=== PATIENT | female | born 1950 | race Caucasian/White ===

== ENCOUNTER 2018-08-17 09:39 | Day surgery (SDC) | payer MEDICARE, BC, SELFPAY ==
--- NOTE | 2018-08-14 15:31 | W.PIPPEYE ---
History of Present Illness Chief Complaint: Progressive decreased vision, left eye Narrative: The patient is a 68-year-old lady who presented with complaints of diminished visual acuity in both eyes at both distance and near. She has significant difficulty driving at night. On examination she was noted to have bilateral nuclear cortical and posterior subcapsular cataract with visual acuity of 20/40 in each eye with significant glare disability. The option of cataract surgery was offered to the patient and she felt she was symptomatic enough that she wished to proceed. NOTE: The Chief Complaint, HPI, Past Medical History, Past Surgical History, Family History, Social History, Medications, and complete Ophthalmic Exam with detailed Assessment and Plan have already been documented in the patient's outpatient ophthalmic record and are not covered again in detail here. [facility] Family History Mother Diabetes Heart disease Stroke Father Kidney disease Neoplasm Surgical History Anterior Spinal Stabilization/Fracture Repair-Cervical Region 1990 Cholecystectomy (10/11/17) Tonsillectomy and adenoidectomy Meds Home Medications Medication Instructions Recorded Confirmed Type amlodipine 1 tab PO DAILY 04/30/17 08/12/18 History enalapril maleate 1 tab PO DAILY 04/30/17 08/12/18 History ciprofloxacin-dexamethasone 7.5 ml OTIC PRN PRN 02/03/18 08/12/18 History [Ciprodex Otic Suspension] naproxen sodium [Aleve] 220 mg PO PRN tab 02/03/18 08/12/18 History metoprolol succinate ER 50 mg 50 mg PO DAILY 08/04/18 08/12/18 History tablet,extended release 24 hr Allergies Allergy/AdvReac Type Severity Reaction Status Date / Time Latex, Natural Rubber Allergy Intermediate Skin Rash Verified 08/13/18 13:37 codeine AdvReac Unknown Nausea Verified 08/13/18 13:37 Exam OCULAR EXAM:: Visual acuity at distance: Corrected visual acuity 20/40 OD, 20/40 OS Pupils: Pupils equal, round, and reactive without afferent pupillary defect IOP: 20 OD 20 OS Extraocular Motility: Normal Pertinent Slit Lamp Findings: Significant for pupils dilating to 7 mm OU. 2-3+ nuclear with 1+ cortical and posterior subcapsular cataract OU Dilated Funduscopic Examination: Disc cupping is 0.5 OD 0.4 OS with good color. The optic nerves have good perfusion and normal color. The retinal vasculature is normal without significant tortuosity or abnormality. The maculas are normal in appearance with normal contour and foveal reflex appropriate for age. The peripheral retina and vitreous are normal. BRIGHTNESS ACUITY TESTING (BAT):: Off left eye 20/40 Low: 20/60 Medium: 20/60 High: 20/80 Assessment and Plan (1) Posterior subcapsular age-related cataract of left eye: Current visit: No Status: Acute Assessment: Visually significant cataract, left eye. Plan: Cataract extraction with intraocular lens implantation, left eye (2) Cortical cataract of left eye: Current visit: No Status: Acute Assessment: Visually significant cataract, left eye. Plan: Cataract extraction with intraocular lens implantation, left eye (3) Nuclear sclerotic cataract of left eye: Current visit: No Status: Acute Assessment: Visually significant cataract, left eye. Plan: Cataract extraction with intraocular lens implantation, left eye Note: NOTE:: The details of the planned surgery, including the risks, indications,limitations,expectations,outcome and possible complications were explained to the patient. The patient understands the complications including, but not limited to: infection, hemorrhage, posterior dislocation of the lens or nuclear fragments which may require the intervention of a vitreoretinal surgeon, possible loss of the eye, or from anesthetic complications. The patient has been made aware of the option of not having surgery, that vision following surgery may not be equal to that prior to surgery, and that the planned surgery may not achieve the intended results. Following this discussion, which the patient appeared to understand, the patient wishes to proceed with cataract surgery with lens implantation of the affected eye to improve and maximize vision.
--- NOTE | 2018-08-14 18:13 | POEE_ITS ---
History of Present Illness Chief Complaint: Progressive decreased vision, left eye Narrative: The patient is a 68-year-old lady who presented with complaints of diminished visual acuity in both eyes at both distance and near. She has significant difficulty driving at night. On examination she was noted to have bilateral nuclear cortical and posterior subcapsular cataract with visual acuity of 20/40 in each eye with significant glare disability. The option of cataract surgery was offered to the patient and she felt she was symptomatic enough that she wished to proceed. NOTE: The Chief Complaint, HPI, Past Medical History, Past Surgical History, Family History, Social History, Medications, and complete Ophthalmic Exam with detailed Assessment and Plan have already been documented in the patient's outpatient ophthalmic record and are not covered again in detail here. [facility] Family History Mother Diabetes Heart disease Stroke Father Kidney disease Neoplasm Surgical History Anterior Spinal Stabilization/Fracture Repair-Cervical Region 1990 Cholecystectomy (10/11/17) Tonsillectomy and adenoidectomy Meds Home Medications Medication Instructions Recorded Confirmed Type amlodipine 1 tab PO DAILY 04/30/17 08/12/18 History enalapril maleate 1 tab PO DAILY 04/30/17 08/12/18 History ciprofloxacin-dexamethasone 7.5 ml OTIC PRN PRN 02/03/18 08/12/18 History [Ciprodex Otic Suspension] naproxen sodium [Aleve] 220 mg PO PRN tab 02/03/18 08/12/18 History metoprolol succinate ER 50 mg 50 mg PO DAILY 08/04/18 08/12/18 History tablet,extended release 24 hr Allergies Allergy/AdvReac Type Severity Reaction Status Date / Time Latex, Natural Rubber Allergy Intermediate Skin Rash Verified 08/13/18 13:37 codeine AdvReac Unknown Nausea Verified 08/13/18 13:37 Exam OCULAR EXAM:: Visual acuity at distance: Corrected visual acuity 20/40 OD, 20/ 40 OS Pupils: Pupils equal, round, and reactive without afferent pupillary defect IOP: 20 OD 20 OS Extraocular Motility: Normal Pertinent Slit Lamp Findings: Significant for pupils dilating to 7 mm OU. 2-3+ nuclear with 1+ cortical and posterior subcapsular cataract OU Dilated Funduscopic Examination: Disc cupping is 0.5 OD 0.4 OS with good color. The optic nerves have good perfusion and normal color. The retinal vasculature is normal without significant tortuosity or abnormality. The maculas are normal in appearance with normal contour and foveal reflex appropriate for age. The peripheral retina and vitreous are normal. BRIGHTNESS ACUITY TESTING (BAT):: Off left eye 20/40 Low: 20/60 Medium: 20/60 High: 20/80 Assessment and Plan (1) Posterior subcapsular age-related cataract of left eye: Current visit: No Status: Acute Assessment: Visually significant cataract, left eye. Plan: Cataract extraction with intraocular lens implantation, left eye (2) Cortical cataract of left eye: Current visit: No Status: Acute Assessment: Visually significant cataract, left eye. Plan: Cataract extraction with intraocular lens implantation, left eye (3) Nuclear sclerotic cataract of left eye: Current visit: No Status: Acute Assessment: Visually significant cataract, left eye. Plan: Cataract extraction with intraocular lens implantation, left eye Note: NOTE:: The details of the planned surgery, including the risks, indications, limitations,expectations,outcome and possible complications were explained to the patient. The patient understands the complications including, but not limited to: infection, hemorrhage, posterior dislocation of the lens or nuclear fragments which may require the intervention of a vitreoretinal surgeon, possible loss of the eye, or from anesthetic complications. The patient has been made aware of the option of not having surgery, that vision following surgery may not be equal to that prior to surgery, and that the planned surgery may not achieve the intended results. Following this discussion, which the patient appeared to understand, the patient wishes to proceed with cataract surgery with lens implantation of the affected eye to improve and maximize vision.
[2018-08-17 10:15] VITALS: BP 152/87; PULSE 60; RESP 16; TEMP 36.4; O2SAT 97
[2018-08-17] MEDS: Lidocaine 2% Jelly 6 ML SYR (10:58)
[2018-08-17] MEDS: Povidone-Iodine Ophth 30 ML BTL (10:58)
[2018-08-17] MEDS: Balanced Salt Soln.-PLUS 500 ML BAG (10:58)
[2018-08-17] MEDS: Lidocaine 1% Pres-Free 5 ML VIAL (10:58)
--- NOTE | 2018-08-17 11:34 | W.PM.DSUDISC ---
Discharge Plan Discharge Details Attending Provider: Joaquin Ortiz Primary Care Provider: Juancarlos Infante Home Meds and New Rx's Prescriptions: No Action metoprolol succinate 50 mg tablet extended release 24 hr 50 mg PO DAILY RF: 0 naproxen sodium [Aleve] 220 MG tablet 220 mg PO PRN RF: 0 ciprofloxacin-dexamethasone [Ciprodex] 7.5 ML drops,suspension 7.5 ml Otic PRN PRNRF: 0 enalapril maleate 20 MG tablet 1 tab PO DAILY RF: 0 amlodipine 5 MG tablet 1 tab PO DAILY RF: 0 Discharge Instructions Stand Alone Forms: Post-op Topical Cataract, Carmelo Neumann (DSU) DS: Diagnosis Discharge Diagnosis (1) Posterior subcapsular age-related cataract of left eye: Status: Resolved (2) Cortical cataract of left eye: Status: Resolved (3) Nuclear sclerotic cataract of left eye: Status: Resolved
--- NOTE | 2018-08-17 11:35 | W.PM.OP ---
Date of service: 08/17/18 Time of Service: 11:35 Operative Note DATE OF PROCEDURE: 08/17/18 PRE-OP DIAGNOSIS: Cataract, left eye POST-OP DIAGNOSIS: same PROCEDURE: Cataract extraction using phacoemulsification with intraocular lens implant, left eye SURGEON: Joaquin Ortiz ANESTHESIA: MAC and local (sub-tenon's anesthetic infiltration) PATHOLOGY: none sent COMPLICATIONS: None Patient was transported to: same day Patient's condition: stable Implants: Rodrigo [employer] Rodrig[employer] / [employer] Tecnis [id number] Indications: Progressive decreased vision due to cataract, left eye Procedure Description: CATARACT SURGERY OPERATIVE REPORT PREOPERATIVE DIAGNOSIS: Nuclear/cortical/posterior subcapsular cataract, left eye POSTOPERATIVE DIAGNOSIS: Same OPERATION: Cataract extraction using phacoemulsification with posterior chamber intraocular lens implant, left eye. IOL: IOL Doll Wig Maker/Model: Rodrig[employer] Rodrig[employer] / GABO Tecnis [id number] IOL Power: +24.50 diopters IOL Serial Number: [id number] Optic Diameter: 6.0mm Haptic/Overall Diameter: 13.0mm PHACO INFO: [employer] One's On Me (NOOM)on Vision System with OZil and Active Fluidics Cumulative Dispersed Energy (CDE): 12.54 seconds SURGEON: Joaquin Ortiz MD, SUSAN ANESTHESIA: Monitored Anesthesia Care (MAC), with local sub-tenon's anesthetic infiltration WITHOUT sedation COMPLICATIONS: None SPECIMENS: None INDICATIONS FOR PROCEDURE: The patient is a 68-year old lady with history of progressive decreased vision in both eyes at both distance and near. She was noted to have a significant nuclear cortical and posterior subcapsular cataract in both eyes. The option of cataract surgery was offered to the patient and she wished to proceed. PROCEDURE: The correct surgical eye was identified and marked as the left eye and the pupil was dilated in the preoperative area using mydriatics, cycloplegics, and NSAIDS (except in aspirin allergic patients). The dilated pupil size was 7.0mm. No sedation was given. The patient was brought to the operating room where cardiopulmonary monitoring was instituted and surgical time-out was performed, confirming the correct operative eye and IOL power. Topical anesthesia was administered and ophthalmic povidone-iodine 5% was instilled into the conjunctival fornices. Lidocaine gel was applied to the cornea and the boston-ocular area was prepped with Betadine 10% solution and draped in the usual sterile fashion for intraocular surgery. Steri-strips were used to cover the lashes and lid margins and an adhesive eye drape was placed. Care was taken to isolate the lashes and lid margins under the Steri-strips and adhesive eye drape. A lid speculum was placed between the lids of the operative eye and the Vimal-Alfonso operating microscope was maneuvered into position. Florecita scissors were then used to make a conjunctival buttonhole approximately 6mm posterior to the limbus in the inferonasal quadrant. Blunt dissection was carried out to expose bare sclera, and a blunt-tipped sub-tenon?s anesthesia cannula was introduced and passed posteriorly along the globe where non-preserved plain lidocaine was injected into posterior sub-Tenon?s space. A sideport knife was used to make a paracentesis port at the 12:00 postion and the anterior chamber was filled with Healon GV. A 2.4mm keratome knife was used to create a half-thickness groove at the limbus and then to construct a three-plane near-clear corneal tunnel extending 2.0mm into clear cornea at the 3:00 position. A flap was raised on the anterior capsule and capsulorhexis forceps were used to complete a continuous curvilinear capsulorhexis of 5.0mm. Balanced salt solution was then used to perform cortical cleaving hydrodissection and nuclear hydrodelineation until the lens could be freely rotated within the capsular bag. The lens nucleus was then disassembled and removed within the capsular bag and iris plane using phacoemulsification. Residual cortical material was removed using the 45-degree angled silicone I/A tip with 0.3mm port. The posterior capsule was carefully polished to remove as much residual lens epithelial cells as safely possible. The capsular bag was then inflated and the anterior chamber deepened with viscoelastic. The lens implant described above was inserted into the capsular bag using the GABO [place] [employer] [place] Injector. A Kuglen hook was used to dial the IOL into position. Residual viscoelastic was then removed first from posterior to the IOL, then from the anterior chamber using the I/A handpiece. The lens implant was noted to center nicely within the capsular bag. The incisions were stromally hydrated, and the anterior chamber was reformed using BSS. Then 0.4cc of moxifloxacin 1.5mg/ml were injected into the capsular bag and anterior chamber. The incisions were checked with a Weck spear and found to be secure. Several drops of ophthalmic povidone-iodine 5% were then applied to the eye followed by two drops of Imprimis combination moxifloxacin/dexamethasone solution. The drapes were removed and a clear plastic protective eye shield was placed over the eye. The patient was then returned to Same Day Surgery in stable condition.
--- NOTE | 2018-08-17 11:40 | ROE_ITS ---
Date of service: 08/17/18 Time of Service: 11:35 Operative Note DATE OF PROCEDURE: 08/17/18 PRE-OP DIAGNOSIS: Cataract, left eye POST-OP DIAGNOSIS: same PROCEDURE: Cataract extraction using phacoemulsification with intraocular lens implant, left eye SURGEON: Joaquin Ortiz ANESTHESIA: MAC and local (sub-tenon's anesthetic infiltration) PATHOLOGY: none sent COMPLICATIONS: None Patient was transported to: same day Patient's condition: stable Implants: Rodrigo and Rodrigo / [employer] Tecnis [id number] Indications: Progressive decreased vision due to cataract, left eye Procedure Description: CATARACT SURGERY OPERATIVE REPORT PREOPERATIVE DIAGNOSIS: Nuclear/cortical/posterior subcapsular cataract, left eye POSTOPERATIVE DIAGNOSIS: Same OPERATION: Cataract extraction using phacoemulsification with posterior chamber intraocular lens implant, left eye. IOL: IOL Telecommunications Network Planner/Model: Rodrig[employer] Rodrigo / GABO Tecnis [id number] IOL Power: +24.50 diopters IOL Serial Number: [id number] Optic Diameter: 6.0mm Haptic/Overall Diameter: 13.0mm PHACO INFO: [employer] Vision System with OZil and Active Fluidics Cumulative Dispersed Energy (CDE): 12.54 seconds SURGEON: Joaquin Ortiz MD, SUSAN ANESTHESIA: Monitored Anesthesia Care (MAC), with local sub-tenon's anesthetic infiltration WITHOUT sedation COMPLICATIONS: None SPECIMENS: None INDICATIONS FOR PROCEDURE: The patient is a 68-year old lady with history of progressive decreased vision in both eyes at both distance and near. She was noted to have a significant nuclear cortical and posterior subcapsular cataract in both eyes. The option of cataract surgery was offered to the patient and she wished to proceed. PROCEDURE: The correct surgical eye was identified and marked as the left eye and the pupil was dilated in the preoperative area using mydriatics, cycloplegics, and NSAIDS (except in aspirin allergic patients). The dilated pupil size was 7.0mm. No sedation was given. The patient was brought to the operating room where cardiopulmonary monitoring was instituted and surgical time -out was performed, confirming the correct operative eye and IOL power. Topical anesthesia was administered and ophthalmic povidone-iodine 5% was instilled into the conjunctival fornices. Lidocaine gel was applied to the cornea and the boston-ocular area was prepped with Betadine 10% solution and draped in the usual sterile fashion for intraocular surgery. Steri-strips were used to cover the lashes and lid margins and an adhesive eye drape was placed. Care was taken to isolate the lashes and lid margins under the Steri-strips and adhesive eye drape. A lid speculum was placed between the lids of the operative eye and the Vimal-Alfonso operating microscope was maneuvered into position. Florecita scissors were then used to make a conjunctival buttonhole approximately 6mm posterior to the limbus in the inferonasal quadrant. Blunt dissection was carried out to expose bare sclera, and a blunt-tipped sub-tenon? s anesthesia cannula was introduced and passed posteriorly along the globe where non-preserved plain lidocaine was injected into posterior sub-Tenon?s space. A sideport knife was used to make a paracentesis port at the 12:00 postion and the anterior chamber was filled with Healon GV. A 2.4mm keratome knife was used to create a half-thickness groove at the limbus and then to construct a three-plane near-clear corneal tunnel extending 2.0mm into clear cornea at the 3:00 position. A flap was raised on the anterior capsule and capsulorhexis forceps were used to complete a continuous curvilinear capsulorhexis of 5.0mm. Balanced salt solution was then used to perform cortical cleaving hydrodissection and nuclear hydrodelineation until the lens could be freely rotated within the capsular bag. The lens nucleus was then disassembled and removed within the capsular bag and iris plane using phacoemulsification. Residual cortical material was removed using the 45-degree angled silicone I/A tip with 0.3mm port. The posterior capsule was carefully polished to remove as much residual lens epithelial cells as safely possible. The capsular bag was then inflated and the anterior chamber deepened with viscoelastic. The lens implant described above was inserted into the capsular bag using the GABO [place] Injector. A Kuglen hook was used to dial the IOL into position. Residual viscoelastic was then removed first from posterior to the IOL, then from the anterior chamber using the I/A handpiece. The lens implant was noted to center nicely within the capsular bag. The incisions were stromally hydrated , and the anterior chamber was reformed using BSS. Then 0.4cc of moxifloxacin 1.5mg/ml were injected into the capsular bag and anterior chamber. The incisions were checked with a Weck spear and found to be secure. Several drops of ophthalmic povidone-iodine 5% were then applied to the eye followed by two drops of Imprimis combination moxifloxacin/dexamethasone solution. The drapes were removed and a clear plastic protective eye shield was placed over the eye. The patient was then returned to Same Day Surgery in stable condition.
== END 2018-08-17 11:45 | disposition home or self-care (01) ==
LOC: SUR 09:40
PROVIDERS: PCP Family Medicine; Visit Provider Ophthalmology
PROC: (CPT 66984; principal; 2018-08-17 12:05)
DX: H25.812 Combined forms of age-related cataract, left eye (principal); I10 Essential (primary) hypertension
CPT/HCPCS: 66984; V2632

== ENCOUNTER 2018-08-31 06:39 | Day surgery (SDC) | payer MEDICARE, BC, SELFPAY ==
--- NOTE | 2018-08-29 19:33 | POEE_ITS ---
History of Present Illness Chief Complaint: Progressive decreased vision, right eye Narrative: The patient is a 68-year-old lady with history of diminished visual acuity in both eyes distance and near. On examination she was noted to have significant bilateral nuclear cortical and posterior cataract. She underwent cataract surgery in the left eye on 08/17/2018. Postoperatively she has regained uncorrected visual acuity of 20/25 in the left eye. She now presents for cataract surgery in the right eye. NOTE: The Chief Complaint, HPI, Past Medical History, Past Surgical History, Family History, Social History, Medications, and complete Ophthalmic Exam with detailed Assessment and Plan have already been documented in the patient's outpatient ophthalmic record and are not covered again in detail here. [facility] Family History Mother Diabetes Heart disease Stroke Father Kidney disease Neoplasm Medical History Cortical cataract of right eye (Acute) Nuclear sclerotic cataract of right eye (Acute) Posterior subcapsular age-related cataract, right eye (Acute) Nuclear sclerotic cataract of left eye (Resolved 08/17/18) Cortical cataract of left eye (Resolved 08/17/18) Posterior subcapsular age-related cataract of left eye (Resolved 08/17/18) Social History Smoking/Tobacco Use Status: Former Tobacco Use Surgical History Anterior Spinal Stabilization/Fracture Repair-Cervical Region 1990 Cholecystectomy (10/11/17) Tonsillectomy and adenoidectomy Meds Home Medications Medication Instructions Recorded Confirmed Type amlodipine 1 tab PO DAILY 04/30/17 08/17/18 History enalapril maleate 1 tab PO DAILY 04/30/17 08/17/18 History ciprofloxacin-dexamethasone 7.5 ml OTIC PRN PRN 02/03/18 08/12/18 History [Ciprodex Otic Suspension] naproxen sodium [Aleve] 220 mg PO PRN tab 02/03/18 08/17/18 History metoprolol succinate ER 50 mg 50 mg PO DAILY 08/04/18 08/17/18 History tablet,extended release 24 hr Allergies Allergy/AdvReac Type Severity Reaction Status Date / Time Latex, Natural Rubber Allergy Intermediate Skin Rash Verified 08/17/18 10:10 codeine AdvReac Unknown Nausea Verified 08/17/18 10:10 Exam OCULAR EXAM:: Visual acuity at distance: Corrected to 20/40 right eye, 20/25 left eye Pupils: Pupils equal, round, and reactive without afferent pupillary defect IOP: 20 OD 14 OS Extraocular Motility: Normal Pertinent Slit Lamp Findings: Significant for pupils dilating to 7 mm OU. 2-3+ nuclear with 1+ cortical and 1+ posterior cataract OD. Well-positioned PCIOL OS to clear posterior capsule. Dilated Funduscopic Examination: Significant for disc cupping of 0.55 OD, 0.4 OS with good color. The optic nerves have good perfusion and normal color. The retinal vasculature is normal without significant tortuosity or abnormality. The maculas are normal in appearance with normal contour and foveal reflex appropriate for age. The peripheral retina and vitreous are normal. BRIGHTNESS ACUITY TESTING (BAT):: Off right eye 20/40 Low: 20/60 Medium: 20/60 High: 20/80 Assessment and Plan (1) Posterior subcapsular age-related cataract, right eye: Current visit: No Status: Acute Assessment: Visually significant cataract, right eye. Plan: Cataract extraction with intraocular lens implantation, right eye (2) Nuclear sclerotic cataract of right eye: Current visit: No Status: Acute Assessment: Visually significant cataract, right eye. Plan: Cataract extraction with intraocular lens implantation, right eye (3) Cortical cataract of right eye: Current visit: No Status: Acute Assessment: Visually significant cataract, right eye. Plan: Cataract extraction with intraocular lens implantation, right eye Note: NOTE:: The details of the planned surgery, including the risks, indications, limitations,expectations,outcome and possible complications were explained to the patient. The patient understands the complications including, but not limited to: infection, hemorrhage, posterior dislocation of the lens or nuclear fragments which may require the intervention of a vitreoretinal surgeon, possible loss of the eye, or from anesthetic complications. The patient has been made aware of the option of not having surgery, that vision following surgery may not be equal to that prior to surgery, and that the planned surgery may not achieve the intended results. Following this discussion, which the patient appeared to understand, the patient wishes to proceed with cataract surgery with lens implantation of the affected eye to improve and maximize vision.
[2018-08-31 06:52] VITALS: BP 152/75; PULSE 58; RESP 16; TEMP 36.1; O2SAT 97
[2018-08-31] MEDS: Lidocaine 2% Jelly 6 ML SYR (08:16)
[2018-08-31] MEDS: Povidone-Iodine Ophth 30 ML BTL ×2 (08:17→08:41)
[2018-08-31] MEDS: Balanced Salt Soln.-PLUS 500 ML BAG (08:18)
--- NOTE | 2018-08-31 08:47 | W.PM.DSUDISC ---
Discharge Plan Discharge Details Attending Provider: Joaquin Ortiz Primary Care Provider: Juancarlos Infante Home Meds and New Rx's Prescriptions: No Action metoprolol succinate 50 mg tablet extended release 24 hr 50 mg PO DAILY RF: 0 naproxen sodium [Aleve] 220 MG tablet 220 mg PO PRN RF: 0 ciprofloxacin-dexamethasone [Ciprodex] 7.5 ML drops,suspension 7.5 ml Otic PRN PRNRF: 0 enalapril maleate 20 MG tablet 1 tab PO DAILY RF: 0 amlodipine 5 MG tablet 1 tab PO DAILY RF: 0 Discharge Instructions Stand Alone Forms: Post-op Topical Cataract, Carmelo Neumann (DSU) DS: Diagnosis Discharge Diagnosis (1) Posterior subcapsular age-related cataract, right eye: Status: Resolved (2) Nuclear sclerotic cataract of right eye: Status: Resolved (3) Cortical cataract of right eye: Status: Resolved
--- NOTE | 2018-08-31 08:50 | ROE_ITS ---
Date of service: 08/31/18 Time of Service: 08:48 Operative Note PRE-OP DIAGNOSIS: Cataract, right eye POST-OP DIAGNOSIS: same SURGEON: Joaquin Ortiz ANESTHESIA: MAC and local (sub-tenon's anesthetic infiltration) PATHOLOGY: none sent COMPLICATIONS: None Patient was transported to: same day Patient's condition: stable Implants: [employer] / [employer]nis [id number] Indications: Progressive decreased vision due to cataract, right eye Procedure Description: CATARACT SURGERY OPERATIVE REPORT PREOPERATIVE DIAGNOSIS: Nuclear/cortical/posterior subcapsular cataract, right eye POSTOPERATIVE DIAGNOSIS: Same OPERATION: Cataract extraction using phacoemulsification with posterior chamber intraocular lens implant, right eye. IOL: IOL Supervisor Production Department/Model: [employer]/GABO [id number] IOL Power: +24.5 diopers IOL Serial Number: [id number] Optic Diameter: 6.0mm Haptic/Overall Diameter: 13.0mm PHACO INFO: W[employer] FitOrbiturion Vision System with OZil and Active Fluidics Cumulative Dispersed Energy (CDE): 11.67seconds SURGEON: Joaquin Ortiz MD, SUSAN ANESTHESIA: Monitored Anesthesia Care (MAC), with local sub-tenon's anesthetic infiltration COMPLICATIONS: None SPECIMENS: None INDICATIONS FOR PROCEDURE: The patient is a 68-year-old lady with history of symptomatic bilateral nuclear cortical and posterior subcapsular cataracts. She is Ardie undergone cataract surgery in her right eye and is doing well postoperatively. She now presents for cataract surgery in the left eye. PROCEDURE: The correct surgical eye was identified and marked as the right eye and the pupil was dilated in the preoperative area using mydriatics, cycloplegics, and NSAIDS (except in aspirin allergic patients). No sedation was given at the patient's request. The patient was brought to the operating room where cardiopulmonary monitoring was instituted and surgical time-out was performed, confirming the correct operative eye and IOL power. Topical anesthesia was administered and ophthalmic povidone-iodine 5% was instilled into the conjunctival fornices. Lidocaine gel was applied to the cornea and the boston-ocular area was prepped with Betadine 10% solution and draped in the usual sterile fashion for intraocular surgery. Steri-strips were used to cover the lashes and lid margins and an adhesive eye drape was placed. Care was taken to isolate the lashes and lid margins under the Steri-strips and adhesive eye drape. A lid speculum was placed between the lids of the operative eye and the Vimal-Alfonso operating microscope was maneuvered into position. Florecita scissors were then used to make a conjunctival buttonhole approximately 6mm posterior to the limbus in the inferonasal quadrant. Blunt dissection was carried out to expose bare sclera, and a blunt-tipped sub-tenon? s anesthesia cannula was introduced and passed posteriorly along the globe where non-preserved plain lidocaine was injected into posterior sub-Tenon?s space. A sideport knife was used to make a paracentesis port at the 7:00 postion and the anterior chamber was filled with Healon GV. A 2.4mm keratome knife was used to create a half-thickness groove at the limbus and then to construct a three-plane near-clear corneal tunnel extending 2.0mm into clear cornea at the 10:00 position. A flap was raised on the anterior capsule and capsulorhexis forceps were used to complete a continuous curvilinear capsulorhexis of 5.0mm. Balanced salt solution was then used to perform cortical cleaving hydrodissection and nuclear hydrodelineation until the lens could be freely rotated within the capsular bag. The lens nucleus was then disassembled and removed within the capsular bag and iris plane using phacoemulsification. Residual cortical material was removed using the 45-degree angled silicone I/A tip with 0.3mm port. The posterior capsule was carefully polished to remove as much residual lens epithelial cells as safely possible. The capsular bag was then inflated and the anterior chamber deepened with viscoelastic. The lens implant described above was inserted into the capsular bag using the GABO [place] Injector. A Kuglen hook was used to dial the IOL into position. Residual viscoelastic was then removed first from posterior to the IOL, then from the anterior chamber using the I/A handpiece. The lens implant was noted to center nicely within the capsular bag. The incisions were stromally hydrated , and the anterior chamber was reformed using BSS. Then 0.4cc of moxifloxacin 1.5mg/ml were injected into the capsular bag and anterior chamber. The incisions were checked with a Weck spear and found to be secure. Several drops of ophthalmic povidone-iodine 5% were then applied to the eye followed by two drops of Imprimis combination moxifloxacin/dexamethasone solution. The drapes were removed and a clear plastic protective eye shield was placed over the eye. The patient was then returned to [facility] in stable condition.
[2018-08-31 09:00] VITALS: BP 157/80; PULSE 59; RESP 16; TEMP 36.2; O2SAT 96
== END 2018-08-31 09:03 | disposition home or self-care (01) ==
LOC: SUR 06:39
PROVIDERS: PCP Family Medicine; Visit Provider Ophthalmology
PROC: (CPT 66984; principal; 2018-08-31 08:30)
DX: H25.811 Combined forms of age-related cataract, right eye (principal); Z98.42 Cataract extraction status, left eye; Z96.1 Presence of intraocular lens; I10 Essential (primary) hypertension
CPT/HCPCS: 66984; V2632

== ENCOUNTER → 2018-09-17 08:39 | Outpatient (BNVA) | payer MEDICARE, BC, SELFPAY | PROVIDERS: PCP Family Medicine; Visit Provider Orthopaedic Surgery | DX: M17.11 Unilateral primary osteoarthritis, right knee (principal); M17.12 Unilateral primary osteoarthritis, left knee | CPT/HCPCS: 20610; 99211; 99213; J3304; J3490; J7318 ==

== ENCOUNTER → 2019-03-16 08:36 | Outpatient (BNVA) | payer MEDICARE, BC, SELFPAY | PROVIDERS: PCP Family Medicine; Referring Provider Family Medicine; Visit Provider Orthopaedic Surgery | DX: M17.11 Unilateral primary osteoarthritis, right knee (principal); M17.12 Unilateral primary osteoarthritis, left knee | CPT/HCPCS: 20610; 99211; 99212; J7318 ==

== ENCOUNTER → 2019-09-14 08:32 | Outpatient (BNVA) | payer MEDICARE, BC, SELFPAY | PROVIDERS: PCP Family Medicine; Referring Provider Family Medicine; Visit Provider Student in an Organized Health Care Education/Training Program | DX: M17.11 Unilateral primary osteoarthritis, right knee (principal); M17.12 Unilateral primary osteoarthritis, left knee; M25.561 Pain in right knee; M25.562 Pain in left knee | CPT/HCPCS: 20610; 99214; J1040 ==

== ENCOUNTER → 2019-12-16 11:19 | Outpatient (BNVA) | payer MEDICARE, BC, SELFPAY | PROVIDERS: PCP Family Medicine; Referring Provider Family Medicine; Visit Provider Student in an Organized Health Care Education/Training Program | DX: M17.11 Unilateral primary osteoarthritis, right knee (principal); M17.12 Unilateral primary osteoarthritis, left knee | CPT/HCPCS: 20610; 99213; J7318 ==

== ENCOUNTER 2020-05-15 10:43 | Outpatient (REF) | payer MEDICARE, BC, SELFPAY ==
[2020-05-15 19:15] LABS: Anion Gap 8.2 mmol/L (3-11); BUN 26 mg/dL (7-18); CO2 26.8 mmol/L (21.0-32.0); CREATININE 1.35 mg/dL (0.55-1.02); Calcium 9.5 mg/dL (8.5-10.1); Chloride 106 mmol/L (98-107); Estimated GFR 38.66 (mL/min/1.73m2); Glucose 117 mg/dL (74-106); Potassium 4.7 mmol/L (3.5-5.1); Sodium 141 mmol/L (136-145)
== END 2020-05-15 11:03 ==
LOC: LBO 10:43
PROVIDERS: PCP Family Medicine; Visit Provider Family Medicine
DX: N18.9 Chronic kidney disease, unspecified (principal)
CPT/HCPCS: 80048

== ENCOUNTER → 2020-06-12 09:49 | Outpatient (BNVA) | payer MEDICARE, BC, SELFPAY | PROVIDERS: PCP Family Medicine; Referring Provider Family Medicine; Visit Provider Student in an Organized Health Care Education/Training Program | DX: M17.12 Unilateral primary osteoarthritis, left knee (principal); M17.11 Unilateral primary osteoarthritis, right knee | CPT/HCPCS: 20610; 99213; J7318 ==

== ENCOUNTER 2020-11-20 01:34 | Outpatient (CLI) | payer MEDICARE, BC, SELFPAY ==
[2020-11-20 13:15] LABS: CREATININE 1.57 mg/dL (0.55-1.02); Creatine Kinase 133 U/L (26-192); Estimated GFR 32.48 (mL/min/1.73m2)
--- NOTE | 2020-11-20 13:30 | DI.CT_ITS ---
EXAM: CT HEAD WO/W CLINICAL HISTORY: OTORRHEA RT EAR, HEAD TRAUMA, CSF LEAK, H92.11, S09.90XA, G96.00. TECHNIQUE: Imaging Protocol: Both noninfused and contrast infused CT scans of the brain were perform ed. IV Contrast Dose =75 cc Axial computed tomography images with coronal and sagittal reformatted images were created and review ed COMPARISON: CT HEAD AND CSPINE W/O CONTRAST from 04/30/2017 FINDINGS: There are no skull fractures nor fluid in the visualized paranasal sinuses. There is opacification of right-sided mastoid air cells which are also hypoplastic and there is fluid at the level of the ad itus ad antrum noted. There is also some fluid in the medial aspect of the middle ear cavity. Ipsil ateral middle ear ossicles appear intact. There is no evidence of intracranial hemorrhage, mass effect, or shift of midline structures. There are no extra-axial fluid collections. The ventricles are not enlarged or shifted and there is no blo od within the ventricular system nor within the basal cisterns. There are no ring enhancing lesions in the brain and there is no abnormal meningeal enhancement, foca l or diffuse. No evidence of obvious aneurysm nor vascular malformation. IMPRESSION: No significant intracranial findings. No significant enhancing intracranial findings. No aneurysm is evident Incidentally noted is hypoplastic mastoid air cells on the right side and some fluid in the medial as pect of the right middle ear cavity, not associated with obvious fascicular destruction. RADIATION DOSE DELIVERED: 1,824.68mGy.cm Total DLP DATA REPOSITORY: All CT scans at this facility are submitted to the National Radiology Data Registry (NRDR) Dose Index Registry (DIR) with the [employer] (ACR). RADIATION OPTIMIZATION: All CT scans at this facility use at least one of these dose optimization te chniques: automated exposure control; mA and/or kV adjustment per patient size (includes targeted exa ms where dose is matched to clinical indication); or iterative reconstruction.
== END 2020-11-20 01:54 ==
PROVIDERS: PCP Family Medicine; Visit Provider Otolaryngology
DX: H92.11 Otorrhea, right ear (principal); S09.8XXA Other specified injuries of head, initial encounter; G96.08 Other cranial cerebrospinal fluid leak
CPT/HCPCS: 82550; 70470; 82565

== ENCOUNTER 2020-12-18 10:22 | Outpatient (CLI) | payer MEDICARE, BC, SELFPAY ==
--- NOTE | 2020-12-18 08:15 | DI.RAD_ITS ---
EXAM: XR KNEE LT 3V AP,LAT,GABE CLINICAL HISTORY: f/u L knee. TECHNIQUE: 2D digital imaging was performed. COMPARISON: CR XR KNEE RT 3V AP,LAT,GABE from 12/18/2020 FINDINGS: There is no evidence of fracture but there does appear to be a joint effusion is seen on the lateral view. There are significant degenerative changes with advanced narrowing of the medial compartment with bon e-on-bone and marginal osteophytes. Moderate degenerative changes in the lateral compartment. Advan kajal degenerative changes in the patellofemoral compartment. No osseous lesions IMPRESSION: Advanced osteoarthritic degenerative changes in the left knee. DATA REPOSITORY: RADIATION DOSE DELIVERED:
--- NOTE | 2020-12-18 08:15 | DI.RAD_ITS ---
EXAM: XR KNEE RT 3V AP,LAT,GABE CLINICAL HISTORY: eval R knee. TECHNIQUE: 2D digital imaging was performed. COMPARISON: No exams were available for comparison FINDINGS: AP and lateral views of the right knee reveal no evidence of fracture or prominent joint effusion. T here are advanced osteoarthritic degenerative changes in the medial and patellofemoral compartments a nd moderate-advanced degenerative changes in the lateral compartment. No ominous osseous lesions. T here is a calcification measuring 7 x 4 millimeters seen laterally adjacent to the posterior 0 medial aspect of the fibular head.. This is not the fabella. IMPRESSION: Advanced osteoarthritic disease of the right knee. DATA REPOSITORY: RADIATION DOSE DELIVERED:
== END 2020-12-18 10:42 ==
PROVIDERS: PCP Family Medicine; Referring Provider Family Medicine; Visit Provider Student in an Organized Health Care Education/Training Program
DX: M17.0 Bilateral primary osteoarthritis of knee (principal); M17.11 Unilateral primary osteoarthritis, right knee; M17.12 Unilateral primary osteoarthritis, left knee
CPT/HCPCS: 20610; 73562; J7318

== ENCOUNTER 2021-01-18 03:15 | Outpatient (CLI) | payer MEDICARE, BC, SELFPAY ==
[2021-01-18 11:00] LABS: Iron 74 ug/dL (50-170); Total Iron Binding Capacity 307 ug/dL (250-450); Transferrin Sat 24 % (15-50)
[2021-01-18 11:27] LABS: Magnesium 2.2 mg/dL (1.8-2.4)
== END 2021-01-18 03:16 | disposition home or self-care (01) ==
PROVIDERS: PCP Family Medicine; Visit Provider Family Medicine
DX: E11.9 Type 2 diabetes mellitus without complications (principal); G47.62 Sleep related leg cramps
CPT/HCPCS: 36415; 83540; 83550; 83735

== ENCOUNTER → 2021-06-18 07:50 | Outpatient (BNVA) | payer MEDICARE, BC, SELFPAY | PROVIDERS: PCP Family Medicine; Visit Provider Student in an Organized Health Care Education/Training Program | DX: M17.11 Unilateral primary osteoarthritis, right knee (principal); M17.12 Unilateral primary osteoarthritis, left knee | CPT/HCPCS: 20610; J7318 ==

== ENCOUNTER 2021-10-16 04:21 | Outpatient (CLI) | payer MEDICARE, BC, SELFPAY ==
[2021-10-16 08:38] LABS: Anion Gap 8.1 mmol/L (3-11); BUN 30 mg/dL (7-18); CO2 25.9 mmol/L (21.0-32.0); CREATININE 1.5 mg/dL (0.55-1.02); Chloride 109 mmol/L (98-107); Estimated GFR 34.13 (mL/min/1.73m2); Glucose 119 mg/dL (74-106); Potassium 4.7 mmol/L (3.5-5.1); Sodium 143 mmol/L (136-145)
== END 2021-10-16 04:22 | disposition home or self-care (01) ==
LOC: LBO 04:21
PROVIDERS: PCP Family Medicine; Visit Provider Family Medicine
DX: N18.9 Chronic kidney disease, unspecified (principal)
CPT/HCPCS: 36415; 80048

== ENCOUNTER → 2022-01-04 10:59 | Outpatient (BNVA) | payer MEDICARE, BC, SELFPAY | PROVIDERS: PCP Family Medicine; Visit Provider Student in an Organized Health Care Education/Training Program | DX: M17.11 Unilateral primary osteoarthritis, right knee (principal); M17.12 Unilateral primary osteoarthritis, left knee | CPT/HCPCS: 20610; J7318 ==

== ENCOUNTER → 2022-08-02 08:07 | Outpatient (BNVA) | payer MEDICARE, BC, SELFPAY | PROVIDERS: PCP Family Medicine; Referring Provider Family Medicine; Visit Provider Student in an Organized Health Care Education/Training Program | DX: M17.11 Unilateral primary osteoarthritis, right knee (principal); M17.12 Unilateral primary osteoarthritis, left knee | CPT/HCPCS: 20610; J7318 ==

== ENCOUNTER → 2023-01-06 08:16 | Outpatient (BNVA) | payer MEDICARE, BC, SELFPAY | PROVIDERS: PCP Family Medicine; Referring Provider Family Medicine; Visit Provider Student in an Organized Health Care Education/Training Program ==

== ENCOUNTER 2023-01-23 03:02 | Outpatient (CLI) | payer MEDICARE, BC, SELFPAY ==
[2023-01-23 08:37] LABS: Anion Gap 8.3 mmol/L (3-11); BUN 27 mg/dL (7-18); CO2 26.7 mmol/L (21.0-32.0); CREATININE 1.3 mg/dL (0.55-1.02); Calcium 9.8 mg/dL (8.5-10.1); Chloride 109 mmol/L (98-107); Estimated GFR 43.15 (mL/min/1.73m2); Glucose 118 mg/dL (74-106); Potassium 4.4 mmol/L (3.5-5.1); Sodium 144 mmol/L (136-145)
== END 2023-01-23 03:03 | disposition home or self-care (01) ==
LOC: LBO 03:03
PROVIDERS: PCP Family Medicine; Visit Provider Family Medicine
DX: N18.9 Chronic kidney disease, unspecified (principal); I10 Essential (primary) hypertension; E11.9 Type 2 diabetes mellitus without complications
CPT/HCPCS: 36415; 80048

== ENCOUNTER → 2023-02-03 08:31 | Outpatient (BNVA) | payer MEDICARE, BC, SELFPAY | PROVIDERS: PCP Family Medicine; Referring Provider Family Medicine; Visit Provider Student in an Organized Health Care Education/Training Program | DX: M17.11 Unilateral primary osteoarthritis, right knee (principal); M17.12 Unilateral primary osteoarthritis, left knee | CPT/HCPCS: 20610; J7318 ==

== ENCOUNTER → 2023-08-14 07:50 | Outpatient (BNVA) | payer MEDICARE, BC, SELFPAY | PROVIDERS: PCP Family Medicine; Referring Provider Family Medicine; Visit Provider Student in an Organized Health Care Education/Training Program | DX: M17.11 Unilateral primary osteoarthritis, right knee (principal); M17.12 Unilateral primary osteoarthritis, left knee | CPT/HCPCS: 20610; J7318 ==

== ENCOUNTER 2023-08-28 04:58 | Outpatient (CLI) | payer MEDICARE, BC, SELFPAY ==
[2023-08-29 11:21] LABS: Lyme Ab w Rflx to Lyme Confirm Negative (Negative)
[2023-08-30 16:25] LABS: Anaplasma phagocytophilum Negative (Negative); B. miyamotoi PCR Negative (Negative); Babesia divergens/MO-1 Negative (Negative); Babesia duncani Negative (Negative); Babesia microti Negative (Negative); Ehrlichia chaffeensis Negative (Negative); Ehrlichia ewingii/canis Negative (Negative); Ehrlichia muris eauclairensis Negative (Negative)
== END 2023-08-28 04:59 | disposition home or self-care (01) ==
LOC: LBO 04:59
PROVIDERS: PCP Family Medicine; Visit Provider Family Medicine
DX: T63.481A Toxic effect of venom of other arthropod, accidental (unintentional), initial encounter (principal)
CPT/HCPCS: 36415; 87798; 86618

== ENCOUNTER → 2024-02-23 08:13 | Outpatient (BNVA) | payer MEDICARE, BC, SELFPAY | PROVIDERS: PCP Family Medicine; Referring Provider Family Medicine; Visit Provider Student in an Organized Health Care Education/Training Program | DX: M17.11 Unilateral primary osteoarthritis, right knee (principal); M17.12 Unilateral primary osteoarthritis, left knee | CPT/HCPCS: 20610; J7318 ==

== ENCOUNTER 2024-03-12 10:05 | Outpatient (CLI) | payer MEDICARE, BC, SELFPAY ==
[2024-03-12 10:31] LABS: Anion Gap 11.3 mmol/L (3-11); BUN 30 mg/dL (7-18); CO2 22.7 mmol/L (21.0-32.0); CREATININE 1.3 mg/dL (0.55-1.02); Calcium 10.8 mg/dL (8.5-10.1); Chloride 111 mmol/L (98-107); Estimated GFR 42.88 (mL/min/1.73m2); Glucose 131 mg/dL (74-106); Potassium 4.2 mmol/L (3.5-5.1); Sodium 145 mmol/L (136-145)
== END 2024-03-12 10:06 | disposition home or self-care (01) ==
LOC: LBO 10:05
PROVIDERS: PCP Family Medicine; Visit Provider Family Medicine
DX: N18.9 Chronic kidney disease, unspecified (principal)
CPT/HCPCS: 36415; 80048

== ENCOUNTER 2024-08-26 10:17 | Outpatient (CLI) | payer MEDICARE, BC, SELFPAY ==
--- NOTE | 2024-08-26 09:15 | DI.RAD_ITS ---
Exam(s) XR KNEE RT 3V AP,LAT,GABE EXAM: XR KNEE RT 3V AP,LAT,GABE CLINICAL HISTORY: eval R knee OA. TECHNIQUE: 2D digital imaging was performed of the right knee. Three views obtained. AP, lateral an d PA tunnel views were obtained. COMPARISON: CR XR KNEE RT 3V AP,LAT,GABE from 12/18/2020 FINDINGS: BONES: No acute fracture is present. No bony destructive lesion is seen. There are enthesophytes at t he anterior patella. JOINTS: There is marked narrowing of the medial femoral tibial joint in the patellofemoral joint. Th ere osteophytes in all 3 joint compartments. There is a joint effusion present. There does appear t o be a density at the tip of the tibial spines which may represent a loose body. SOFT TISSUE: Vascular calcifications are present. IMPRESSION: Marked osteoarthritis of the right knee. Joint effusion. DATA REPOSITORY: RADIATION DOSE DELIVERED:
--- NOTE | 2024-08-26 09:15 | DI.RAD_ITS ---
Exam(s) XR KNEE LT 3V AP,LAT,GABE EXAM: XR KNEE LT 3V AP,LAT,GABE CLINICAL HISTORY: eval L knee OA progression. TECHNIQUE: 2D digital imaging was performed of the left knee. Three images were obtained. AP, late ral and PA tunnel views were obtained. COMPARISON: CR XR KNEE LT 3V AP,LAT,GABE from 12/18/2020 FINDINGS: BONES: No acute fracture is present. No bony destructive lesion is seen. There is enthesophyte at th e anterior patella. JOINTS: There is marked narrowing of the medial femoral tibial joint. There osteophytes in all 3 tavia nt compartments. There is a joint effusion present. There are small density seen posteriorly on the lateral view which may represent loose bodies. SOFT TISSUE: Vascular calcifications are present. IMPRESSION: Stable marked osteoarthritis of the left knee. DATA REPOSITORY: RADIATION DOSE DELIVERED:
== END 2024-08-26 10:18 | disposition home or self-care (01) ==
LOC: DIORS 10:17
PROVIDERS: PCP Family Medicine; Referring Provider Family Medicine; Visit Provider Student in an Organized Health Care Education/Training Program
DX: M17.12 Unilateral primary osteoarthritis, left knee (principal); M17.11 Unilateral primary osteoarthritis, right knee
CPT/HCPCS: 20610; 73562; J7318

== ENCOUNTER 2024-09-29 01:44 | Outpatient (CLI) | payer MEDICARE, BC, SELFPAY ==
--- NOTE | 2024-09-29 09:45 | DI.MRI_ITS ---
Exam(s) MR LUMBAR SPINE WO EXAM: MR LUMBAR SPINE WO CLINICAL HISTORY: Lumbar radicular pain,RADICULITIS,SPONDYLOSIS,LOW BACK PAIN,M54.16,M47.816,. TECHNIQUE: Multiplanar multisequence MRI of the Lumbar spine was performed. COMPARISON: No exams were available for comparison FINDINGS: Bones: The last intervertebral disc space is designated the L5/S1 level for the numbering purpose of this examination. There are endplate osteophytes at several levels of the lower thoracic and lumbar spine. Disc heights are well maintained. Alignment is satisfactory. The signal characteristics are unremarkable. Cord: The conus tip ends at the T12 level. It is of normal size and signal intensity. T12-L1: No disc herniations or bulges are present. No central spinal canal or neural foraminal stenos is. L1-2: No disc herniations or bulges are present. There are degenerative changes of the facets present . There is no significant central spinal canal stenosis. There is mild bilateral neural foraminal s tenosis. L2-3: There is a diffuse disc bulge. There are degenerative changes of the facets and hypertrophy of the ligamentum flavum. There is mild resulting narrowing of the central spinal canal. There is mod erate bilateral neural foraminal stenosis. L3-4: There is a diffuse disc bulge. There are degenerative changes of the facets and ligamentum fla vum. There is a small synovial cyst projecting into the spinal canal arising from the left facet tavia nt. These all contribute to cause moderately severe central spinal canal stenosis. There is also mi [id number]-fkccdhet bilateral neural foraminal stenosis. L4-5: No disc herniations or bulges are present. There are degenerative changes of the facets and hyp ertrophy of the ligamentum flavum. No significant central spinal canal stenosis is present. There i s no right neural foraminal stenosis. There is mild narrowing of the left neural foramen. L5-S1: No disc herniations or bulges are present. There are degenerative changes of the facets presen t.No significant central spinal canal or neural foraminal stenosis. Soft tissues: The visualized SI joints and sacrum are well maintained. The paraspinal soft tissues ar e unremarkable. Visualized abdominal organs: Note is made of diverticulosis in the colon. IMPRESSION: Multilevel degenerative changes in the lumbar spine. The findings are most marked at L3-L4 where the re is severe central spinal canal and bcev-oz-pzqxeruw bilateral neural foraminal stenosis. DATA REPOSITORY:
== END 2024-09-29 02:04 ==
PROVIDERS: PCP Family Medicine; Visit Provider Anesthesiology Pain Medicine
DX: M54.16 Radiculopathy, lumbar region (principal); M47.895 Other spondylosis, thoracolumbar region
CPT/HCPCS: 72148

== ENCOUNTER 2025-02-24 03:32 | Outpatient (CLI) | payer MEDICARE, BC, SELFPAY ==
[2025-02-24 10:40] LABS: Hemoglobin A1C 5.8 % (<5.7)
[2025-02-24 10:54] LABS: Anion Gap 9.1 mmol/L (3-11); BUN 23 mg/dL (7-18); CO2 24.9 mmol/L (21.0-32.0); CREATININE 1.3 mg/dL (0.55-1.02); Calcium 9.9 mg/dL (8.5-10.1); Chloride 112 mmol/L (98-107); Estimated GFR 42.62 (mL/min/1.73m2); Glucose 115 mg/dL (74-106); Potassium 4.3 mmol/L (3.5-5.1); Sodium 146 mmol/L (136-145)
== END 2025-02-24 03:33 | disposition home or self-care (01) ==
LOC: LBO 03:32
PROVIDERS: PCP Family Medicine; Visit Provider Family Medicine
DX: N18.9 Chronic kidney disease, unspecified (principal); M10.9 Gout, unspecified; E11.9 Type 2 diabetes mellitus without complications
CPT/HCPCS: 36415; 80048; 83036; 84550

== ENCOUNTER → 2025-08-25 07:51 | Outpatient (BNVA) | payer MEDICARE, BC, SELFPAY | PROVIDERS: PCP Family Medicine; Referring Provider Family Medicine; Visit Provider Student in an Organized Health Care Education/Training Program | DX: M17.0 Bilateral primary osteoarthritis of knee (principal) | CPT/HCPCS: 20610; J7318 ==